=== PATIENT | male | born 1990 | race Two or more races ===

== ENCOUNTER → 2023-02-23 11:14 | Outpatient (BNVA) | payer BC, SELFPAY | PROVIDERS: Visit Provider Student in an Organized Health Care Education/Training Program | DX: Z13.89 Encounter for screening for other disorder (principal) ==

== ENCOUNTER 2023-02-23 12:14 | Outpatient (REF) | payer BC, SELFPAY ==
[2023-02-23 13:28] LABS: MANUAL DIFF FLAG NO
[2023-02-23 13:54] LABS: Basophils Absolute Auto 0.1 X10*3/uL (0.0-0.2); Basophils Percent Auto 0.8 % (0-2); Eosinophils Absolute Auto 0.1 X10*3/uL (0.0-0.4); Eosinophils Percent Auto 0.8 % (0-4); Hematocrit 41.5 % (42.0-52.0); Hemoglobin 14.5 g/dl (14.0-18.0); Imm Gran Abs Auto 0.04 X10*3/uL (0.00-0.03); Imm Gran Pct Auto 0.5 % (0.0-0.4); Lymphocytes Percent Auto 40.2 % (20-40); Mean Corpuscular HGB Conc 34.9 g/dl (31.0-36.0); Mean Corpuscular Hemoglobin 29.3 pg (27.0-33.0); Mean Corpuscular Volume 83.8 fL (80.0-98.0); Mean Platelet Volume 9.7 fL (9.4-12.4); Monocytes Absolute Auto 0.6 X10*3/uL (0.1-1.2); Monocytes Percent Auto 7.5 % (2-11); Neutrophils Absolute Auto 3.7 x10*3/uL (2.0-8.3); Neutrophils Percent Auto 50.2 % (45-73); Platelet Count 361 X10*3/uL (160-400); Red Blood Count 4.95 X10*6/uL (4.60-5.80); Red Cell Distribution Width 11.6 % (11.0-16.0); White Blood Count 7.3 X10*3/uL (4.8-10.8)
[2023-02-23 14:21] LABS: Alanine Aminotransferase 95 U/L (0-40); Albumin Level 4.8 g/dL (3.5-5.0); Alkaline Phosphatase 73 U/L (39-117); Anion Gap 18 (12-20); Aspartate Amino Transferase 46 U/L (5-37); Bilirubin Total 1.1 mg/dL (0.0-1.0); Blood Urea Nitrogen 11 mg/dL (9-16); C Reactive Protein 0.44 mg/dL (< or = 0.50); Carbon Dioxide 25 mmol/L (22-29); Chloride 98 mmol/L (96-108); Estimated Glomerular Filt Rate > 60; Glucose Random 305 mg/dL (60-115); Potassium 4.8 mmol/L (3.3-5.1); Rheumatoid Factor 14.4 IU/mL (<15.0); Sodium 136 mmol/L (135-145); Total Protein 7.6 g/dL (6.5-8.0)
[2023-02-23 14:56] LABS: Erythrocyte Sedimentation Rate 18 MM/HR (0-15)
[2023-02-25 21:48] LABS: TS Negative Control Passed; TS Panel A 0; TS Panel B 0; TS Positive Control Passed; TSpotTB Negative (Negative)
[2023-02-26 08:43] LABS: HBS Num1 7.29 mIU/mL (0-7.99); HBc Num1 0.06 S/CO (0.00-0.79); HBsAGNum1 0.34 S/CO (0.00-0.99); Hepatitis A Antibody IgM 0.15 Index (0-0.79); Hepatitis B Core Antibody Nonreactive (Nonreactive); Hepatitis B Surface Antigen Negative (Negative); ~HepC Num1 0.06 S/CO (0.00-0.79); ~Hepatitis A Antibody IgM Nonreactive (Nonreactive); ~Hepatitis B Surface Antibody NONREACTIVE (Nonreactive); ~Hepatitis C Antibody Nonreactive (Nonreactive)
[2023-02-26 21:28] LABS: Lyme Abs Screen <0.90 index
[2023-02-27 23:43] LABS: Prot Elec - Alpha1 0.3 g/dL (0.2-0.3); Prot Elec - Alpha2 0.9 g/dL (0.5-0.9); Prot Elec - Beta 1 0.6 g/dL (0.4-0.6); Prot Elec - Beta 2 0.4 g/dL (0.2-0.5); Prot Elec - Gamma 0.8 g/dL (0.8-1.7); Prot Elec - Total Protein 7.9 g/dL (6.1-8.1)
[2023-02-28 09:08] LABS: IgA 300 mg/dL (47-310); IgG 904 mg/dL (600-1640); IgM 143 mg/dL (50-300)
== END 2023-02-23 12:15 | disposition home or self-care (01) ==
LOC: HO.10HDL 12:14
PROVIDERS: Visit Provider Student in an Organized Health Care Education/Training Program
DX: M06.9 Rheumatoid arthritis, unspecified (principal); M25.541 Pain in joints of right hand; E11.9 Type 2 diabetes mellitus without complications; M32.9 Systemic lupus erythematosus, unspecified; Z11.59 Encounter for screening for other viral diseases; Z72.89 Other problems related to lifestyle
CPT/HCPCS: 36415; 80053; 82784; 84165; 85025; 85652; 86140; 86334; 86431; 86481; 86617; 86618; 86704; 86706; 86709; 86803; 87340

== ENCOUNTER 2023-07-23 14:12 | Outpatient (AMB) | payer BC, SELFPAY ==
[2023-07-23 14:15] VITALS: BP 112/60; PULSE 93; TEMP 36.3; O2SAT 98; BMI 28.2
--- NOTE | 2023-07-23 14:15 | MHC.OFFVIS ---
Intake Vital Signs 07/23/23 14:15 Height 5 ft 5 in Weight 169 lb 8.568 oz BMI 28.2 BP 112/60 Blood Pressure Location Rt brachial Position Sitting Pulse 93 Pulse Source Pulse Oximeter Temp 97.3 F Temp Source Skin Pulse Oximetry (%) 98 Intake Visit Reasons: RA Intake Note: Pt seen today for RA follow up [employer] Required: No Accompanied by: Self / Same As Patient Allergies No Known Allergies Allergy (Unverified 07/23/23 14:19) Medication List - Last Reconciled 07/23/23 by Briana Navarrete MD [email or web address] (Jardiance) 10 mg PO DAILY meloxicam 15 mg PO DAILY metformin ER 500 mg PO BID HPI HPI Comments History of Present Illness Details Patient returns for follow-up after completion of his diagnostic workup. States that he has been taking meloxicam 15 mg daily and it provides some relief for 3-4 hours. He continues to have pain in his wrists, elbows, fingers, ankles, knees. States that the pain is with activity. Does not have any pain if he is resting. Initial history: This is a 33-year-old disabled due to degenerative spinal stenosis + sciatic go presents for evaluation of multiple joint pain. The condition started back in 2012 when he noticed joint pains in his hands, wrists, elbows, knees, ankles and feet. The pain would last a few days then go away for a few weeks. Over the last 6 months the pain has become more persistent. His hands would lock up. He has morning stiffness of his joints lasting 2 hours. He takes naproxen 220 mg which provides short-lived relief. Back in 2013 he would also get some rashes on his abdomen hands which he thought were interstitial granulomatous dermatitis. He is unaware of any family history of autoimmune rheumatic disease. He denies any history of DVT/PE. No history of Raynaud's. 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 Surgical History H/O foot surgery Family History Maternal Grandmother Skin cancer Diabetes Social History Alcohol intake: current Alcohol intake frequency: does not drink Patient Tobacco Use Status: Former Tobacco user Review of Systems Resp Reports no additional complaints Musc Reports arthralgias, Reports joint swelling and Reports stiffness Physical Exam Vital Signs: Last Vital Signs Temp 97.3 F 07/23/23 14:15 Pulse 93 07/23/23 14:15 BP 112/60 07/23/23 14:15 Pulse Ox 98 07/23/23 14:15 BMI result Body Mass Index 28.2 Const General: cooperative, healthy appearing and comfortable Nutritional Appearance: overweight Orientation/consciousness: patient oriented x3 Limitations: no limitations HEENT Head: Yes normocephalic and Yes atraumatic Mouth: moist mucous membranes Resp Effort & Inspection: normal respiratory effort and able to speak in complete sentences Auscultation: clear to auscultation bilaterally Cardio Rate: regular rate Rhythm: regular rhythm Heart sounds: S1 normal heart sound present and S2 normal heart sound present GI Inspection: No distended Palpation (GI): Soft to palpation and nontender Neuro General: patient oriented x3 Extrem Other: Osteoarthritic changes of both hands with squaring of 1st CMC joints Early Heberden's nodes Bilateral positive CMC grind test Bilateral knee crepitus No swollen or tender joints noted Normal nailfold capillaroscopy Negative MCP and MTP squeeze test bilaterally Normal range of motion of elbows, shoulders. Results Reviewed Results Reviewed: Labs 11/2022 CRP 1.23 (<0.5) ESR 25 (0-15) RF 17 (<15) CCP negative CMP with elevated ALT at 0101 Glucose 331 CBC unremarkable X-RAY EXAM OF HAND, 3+ VIEWS Exam Date: 11/16/2022 11:45 AM Ordering Diagnosis: Pain in joint, multiple sites ? ? EXAM: Bilateral hand x-ray ? HISTORY: Bilateral hand pain. ? COMPARISON: None ? FINDINGS: ? 3 views of both hands were performed. ? Minimal joint space narrowing and spurring at the 1st CMC joints.? Joint spaces otherwise? appear maintained.? No evidence of an acute fracture or malalignment.? No destructive or? erosive bony changes.? No soft tissue calcifications. ? IMPRESSION IMPRESSION: ? Minimal degenerative changes at the 1st CMC joints. ? Assessment & Plan Assessment & Plan (1) Rheumatoid arthritis: Code(s): M06.9 - Rheumatoid arthritis, unspecified Qualifiers: Rheumatoid arthritis location: multiple sites Rheumatoid factor presence: with rheumatoid factor Qualified Code(s): M05.79 - Rheumatoid arthritis with rheumatoid factor of multiple sites without organ or systems involvement Plan: This is a 33-year-old male who presents for evaluation of rheumatoid arthritis. Since 2012 patient has been having flares of joint pains. More recently he has been having constant joint pain with activity in his hands, knees, elbows, fingers. Labs showed a 1 time borderline positive rheumatoid factor that was negative on repeat. Negative CCP. inflammatory markers normal. On exam patient has some osteoarthritic changes of both hands. Will check bilateral hand and wrist ultrasound to evaluate for synovitis/tenosynovitis. Advised patient to hold meloxicam for 2 weeks before the test Plan I spent 26 minutes reviewing patient's chart, evaluating patient, ordering diagnostic workup, counseling patient and documenting in the chart Orders: Orders US extremity nonvascular Today M06.9 - Rheumatoid arthritis, unspecified Coding Level of Care Code Est Pt Level 4 (34733) Diagnoses Rheumatoid arthritis involving multiple sites with positive rheumatoid factor M05.79 Rheumatoid arthritis location: multiple sites Rheumatoid factor presence: with rheumatoid factor
== END 2023-07-23 14:48 | disposition home or self-care (01) ==
PROVIDERS: Visit Provider Student in an Organized Health Care Education/Training Program
DX: M05.79 Rheumatoid arthritis with rheumatoid factor of multiple sites without organ or systems involvement (principal)
CPT/HCPCS: 99214

== ENCOUNTER → 2023-07-23 14:12 | Outpatient (BNVA) | payer BC, SELFPAY | PROVIDERS: Visit Provider Student in an Organized Health Care Education/Training Program ==